=== PATIENT | female | born 1965 | race Caucasian/White ===

== ENCOUNTER 2019-03-08 10:28 | Outpatient (CLI) | payer BC ==
[2019-03-08 16:24] VITALS: BP 150/91
--- NOTE | 2019-03-08 16:24 | SLEEP CARE CONSULTATION ---
Information from patient questionnaire entered by Rosalva Barrow. I have reviewed and concur with the information entered by Rosalva Barrow. This document represents the service I personally performed and the decisions made by me, Chuck Chow MD, [facility]. History of Present Illness Reason for Visit: New patient Chief Complaint: reports: Insomnia Duration of Symptoms: 20+ years Usual bedtime: 9pm - 6 am Time it takes to fall asleep: 15-20 min Snores at night: Yes Observed to quit breathing while asleep: Yes Number of times waking at night: 2-4 Reasons for waking at night: reports: Gasping for air, Bathroom Toss, Turn, or Twitch while sleeping: Yes Recalls having dreams: Yes (sometimes) Usually gets out of bed at: 6 am Feels refreshed in the morning: No Morning headache: No Sleepy or fatigued during the day: Yes Ever fallen asleep while driving: No Takes day naps: No Prior sleep studies: Yes Year and Where: 2010, [place], [place] Additional HPI information: I had the pleasure of seeing Ms. Sorto today regarding the possibility of her having a sleep disorder. As you know, she is a 53 year old lady who complains of loud snore, observed apneas, frequent awakenings, unrefreshed sleep, and excessive daytime sleepiness. She had a sleep study in 2010 in [place]. The results are not available. Presently, she is not using CPAP. She used her CPAP a few years but not consistently. She quit because of headache and feeling that it blew too hard. She wore a full face mask. She did feel better when using the CPAP. The patient tells me that she normally goes to bed around 9 pm, and it takes her approximately 15 - 20 minutes to fall asleep. She snores loudly. She can recall waking up on the average of 2 - 4 times during the night. Most of the time she wakes up because of having to use the bathroom. She has awakened occasionally because of her own snoring, choking, and having to gasp for air. There is a lot of tossing and turning in her sleep. No somniloquy (sleep talking) or somnambulism (sleep walking). Generally she can recall having dreams. In the morning she usually gets up out of the bed around 6 a.m. not feeling refreshed nor rested. She usually does not have a morning headache. During the day she complains of feeling sleepy and fatigued. Her score on [place] Sleepiness Scale is 6 out of 24. She has never fallen asleep while driving nor has had any accident due to sleepiness. She usually does not take naps during the day. She reports having impaired concentration during the day. - Parasomnia Symptoms Ever been unable to move upon waking from sleep: No Ever felt weak in the knees when startled or emotional: No Bothered by creepy, crawly, restless sensations in legs: No Problems with memory or concentration: Yes Subjective Initial [place] Sleepiness Scale score: 6 Past Medical History Past Medical History: reports: Hypertension, Claustrophobia, Anxiety, GERD (mild), Other (BEATRIZ) Social History The patient's occupation is a RN. Patient is Single and lives in [place]. Have you smoked in the past 12 months: No Alcohol use: No Caffeine use: Yes Caffeine amount and frequency: 2-4 cups a day Family History Family history of sleep disordered breathing: No Allergies and Home Medications Known drug allergies: Yes (morphine, amoxicillin, and Norvasc) Drug allergies reviewed: Yes Home medication list reviewed: Yes (Bystolic, Benadryl, and vitamin D) Review of Systems Weight gain over past 5 years: 10 Cardiovascular: reports: high blood pressure, palpitations, leg or foot swelling Respiratory: denies: shortness of breath, wheeze, sputum production, chronic cough, other Gastrointestinal: reports: heartburn Urinary: denies: incontinence, frequency, urgency, impotence, other Neurological: denies: headaches, seizure, head trauma, disorientation, speech dysfunction, gait or balance problems, fainting or unconsciousness, other Psychiatric: reports: claustrophobia Ear/Nose/Throat: reports: wisdom teeth removed Endocrine: reports: sluggishness Musculoskeletal: denies: joint pain, neck pain, back pain, joint swelling, muscle pain or cramping, mobility problems, other Immunologic: reports: other (OCCAS, Eczema) Physical Exam Vital signs obtained and entered by: Dr. Chow Blood Pressure: 150/91 Cuff size: regular Heart Rate: 80 O2 Saturation: 98 Height: 5 ft 5 in Weight: 184 lb Body Mass Index: 30.6 BMI Classification: Obesity Class 1 Neck circumference: 16 Mood/affect: normal HEENT: No craniofacial malformation Nostrils: patent to airflow Turbinates: normal Septum: midline Mouth and throat: narrow oropharynx Soft palate: long Hard palate: normal Uvula: normal Uvula visualization: 25% Mallampati Class III Tongue: enlarged in size with teeth gaston on lateral edges Tonsils: small Chin and jaw: normal size and position Neck: normal w/o lymphadenopathy or thyromegaly Heart: regular rate and rhythm Lungs: clear bilaterally Abdomen: soft, non-tender Extremities: no edema or clubbing Neurologic: intact, no focal deficits Impression and Plan IMPRESSION: 1. Obstructive Sleep Apnea-Hypopnea Syndrome, as previously diagnosed. The severity is unknown as we do not have any of the records. She is not using her CPAP because of discomfort. She appears to be symptomatic for loud snore, unrefreshed sleep, persistent fatigue, and excessive daytime sleepiness. Narrow oropharynx and obesity are common predisposing factors for obstructive sleep apnea-hypopnea syndrome. Untreated obstructive sleep apnea can also cause hypertension. Pathophysiology of sleep-disordered breathing was discussed. I recommend proceeding to polysomnography to confirm the diagnosis and to assess severity. If she has significant sleep disordered breathing, a manual CPAP titration study will also be performed to find the optimal treatment pressure. I informed the patient of what the sleep studies involve and after some discussion, she agreed to proceed. Plan: 1. Schedule polysomnography + manual CPAP titration study. Home sleep apnea test (HSAT) is also an alternative diagnostic procedure. 2. Avoid long distance driving or when feeling sleepy. 3. Avoid alcohol, sedative and muscle relaxant around bedtime. 4. Attempt to lose weight. 5. Return in 1 to 2 weeks after the study to discuss results and reinitiate the therapy. I spent 100% of this visit face to face with the patient with greater than 50% of this was spent time counseling the patient and coordination of care.
== END 2019-03-08 10:29 | disposition home or self-care (01) ==
LOC: SC 10:28
PROVIDERS: ATTEND Internal Medicine Pulmonary Disease
DX: G47.33 Obstructive sleep apnea (adult) (pediatric) (principal); E66.9 Obesity, unspecified; Z68.30 Body mass index [BMI] 30.0-30.9, adult
CPT/HCPCS: 99203; 99212

== ENCOUNTER → 2019-03-21 | Outpatient (CLI) | payer BC | LOC: SC 19:30 | PROVIDERS: ATTEND Internal Medicine Pulmonary Disease | DX: G47.33 Obstructive sleep apnea (adult) (pediatric) (principal) | CPT/HCPCS: 95806 ==

== ENCOUNTER 2019-05-16 14:04 | Outpatient (CLI) | payer BC ==
--- NOTE | 2019-05-16 22:52 | SLEEP CARE CONSULTATION ---
Information from patient questionnaire entered by Rosalva Barrow. I have reviewed and concur with the information entered by Rosalva Barrow. This document represents the service I personally performed and the decisions made by me, Chuck Chow MD, [facility]. History of Present Illness Initial [place] Sleepiness Scale score: 6 Additional HPI information: To minimize the risk of COVID-19 exposure, we have the option to conduct your visit with me over the phone. I will be able to discuss your health and offer medical advice. If you agree, we will bill your insurance. Do you agree to this telephone service: YES. HPI: returned for follow up of the home sleep apnea test (HSAT) she had on 03/21/2019. The polysomnography showed moderate obstructive sleep apnea-hypopnea with an AHI of 21.4 and minimal hypoxemia. The respiratory events occurred mainly during supine sleep. The patient was informed of these findings. I explained to her the pathophysiology behind obstructive sleep apnea. We then spent quite a bit of time discussing different treatment options. For mild obstructive sleep apnea, surgery and oral appliance are alternatives to nasal CPAP therapy but in moderate or severe cases, nasal CPAP is the most effective and reliable treat ment. After some discussion, she opted try CPAP again. She used a CPAP briefly long time ago and quit because of headache. She remembers the pressure being too strong. Allergies and Home Medications Drug allergies reviewed: Yes Home medication list reviewed: Yes Review of Systems Review of systems same as previous: Yes Physical Exam Height: 5 ft 5 in Impression and Plan IMPRESSION: 1. Obstructive Sleep Apnea-Hypopnea Syndrome, moderate, associated with minimal hypoxemia. Possibly, this is the cause of the patients symptoms of unrefreshed sleep, and excessive daytime sleepiness. As mentioned above, the patient will be started on autoCPAP set low at 4 - 8 cmH2O. Depending on her response and compliance she may be brought back for an overnight CPAP titration study. PLAN: 1. Prescription made for an autoCPAP with heated humidifier and related supplies. 2. Attempt to lose weight. 3. Be careful when driving until her sleepiness resolves completely on nasal CPAP therapy. 4. Return in one month for follow up. I will assess her response and compliance at that time. I spent 100% of the 12 minute phone call with the patient with greater than 50% of this spent counseling the patient and coordination of care.
== END 2019-05-16 14:05 | disposition home or self-care (01) ==
LOC: SC 14:04
PROVIDERS: ATTEND Internal Medicine Pulmonary Disease
DX: G47.33 Obstructive sleep apnea (adult) (pediatric) (principal)

== ENCOUNTER 2019-08-11 13:42 | Outpatient (CLI) | payer BC ==
[2019-08-11 15:04] VITALS: BP 148/90
--- NOTE | 2019-08-11 15:04 | SLEEP CARE CONSULTATION ---
Information from patient questionnaire entered by Rosalva Barrow. I have reviewed and concur with the information entered by Rosalva Barrow. This document represents the service I personally performed and the decisions made by me, Shalini De La Cruz, RN, MSN, [employer]. History of Present Illness Service Date and Time: 08/11/2019 1342 Previous diagnosis: Moderate, Obstructive Sleep Apnea-Hypopnea Syndrome AHI: 21.4 (in 2019) Reason for follow up: first compliance Equipment type: CPAP Equipment obtained from: [facility] (no replacement supplies) Mask style: Full face Backup mask available: No (keep current mask when replaced) Last cushion change: none set up Prior sleep studies: Yes Year and Where: 2019 - [facility] Type of Sleep Study: Home sleep study CPAP Compliance Data - Data Reviewed with Patient Average duration of nightly device use: 6 Compliance rate %: 76.7 Current pressure setting (cmH2O): 4-8 Humidity settin Heated hose settin Average residual AHI: 10.2 Central apnea: 0.2 Obstructive apnea: 1.9 Hypopnea: 8.1 Average large leak: 23 min 25 sec Subjective Patient concerns: reports: air blowing in eyes (constantly adjusting mask to reduce mask leaks. ), mask leak noise, dry mouth, nose, throat (nightly mouth and throat - mild), other (headache initially for first week but now gone ). denies: aerophagia, mask discomfort, condensation in mask/hose, nasal congestion, epistaxis Observed to snore while using device: No Current pressure setting perceived as: comfortable On therapy, patient: reports: being more awake and alert during the day, more rested overall (but lately not as rested for unknown reason). denies: drowsiness while driving Initial [place] Sleepiness Scale score: 6 (in 2020) Current [place] Sleepiness Scale score: 9 Allergies and Home Medications Home medication list reviewed: Yes (no changes stated) Review of Systems Review of systems same as previous: Yes Physical Exam Blood Pressure: 148/90 Cuff size: long Heart Rate: 74 O2 Saturation: 97 Height: 5 ft 5 in Weight: 190 lb 12.8 oz Body Mass Index: 31.7 BMI Classification: Obese Impression and Plan 1. Obstructive Sleep Apnea-Hypopnea Syndrome, moderate, with good treatment compliance and mild elevation of residual AHl. On CPAP therapy, the patient has better sleep quality and is more rested overall. The patients pressure will be changed to autoCPAP 8-12 cmH20 For elevation of residual AHI. Patient advised to contact me if pressure change is uncomfortable so that it can be adjusted. Goals for apnea control discussed. Mask leaks are prevalent despite constant adjustment causing leaks into eyes and irritation and swelling below eyes. Thus I will order a mask refitting for better adjustment or size of cushion as she is not yet due for new mask. I have no samples to give her to try. In addition, I will have her loosen her mask under eyes to prevent swelling and to use eye lubricating drops and eye mask for eye protection. Her oral dryness can be reduced by adjusting humidity setting higher or heated hose lower or by adjusting both settings. Since she feels the air is too hot I will have her start with lowering the heated hose. Verbal instructions given on how to change humidity and heated hose settings with rationale explaining why to change. Oral dryness can also be reduced by reducing mask leaks. Patient advised that chronic oral dryness can affect dental health and advised to follow up with dentist. In addition, there are oral dryness products that can be used to reduce dryness. Patient to discuss best option with dentist. Patient's apnea severity and rationale for treatment to reduce apnea, improve sleep quality and reduce cardiovascular and cerebrovascular events was reviewed. I also reviewed the benefit of consistent device use of CPAP for hypertension. * Changeauto CPAP pressure to 8-12 cmH2O * Notify me if snoring with mask or feeling that the pressure is too much or too little * Implement methods to reduce mask leaks and oral dryness * mask refitting * Attempt to lose weight * Call this office if any problems using CPAP * Return for follow up in 1-2 months , or sooner if concerns arise Visit Type: In Office Time Spent with Patient (minutes): 35 Provider Statement: I spent 100% of the Face to Face Visit with the patient with greater than 50% spent counseling the patient and coordination of care.
== END 2019-08-11 13:43 | disposition home or self-care (01) ==
LOC: SC 13:42
PROVIDERS: ATTEND Nurse Practitioner Family
DX: G47.33 Obstructive sleep apnea (adult) (pediatric) (principal); E66.9 Obesity, unspecified; Z68.31 Body mass index [BMI] 31.0-31.9, adult
CPT/HCPCS: 99212; 99214

== ENCOUNTER 2019-11-09 14:18 | Outpatient (CLI) | payer BC ==
--- NOTE | 2019-11-09 15:02 | SLEEP CARE CONSULTATION ---
Information from patient questionnaire entered by Rosalva Barrow. I have reviewed and concur with the information entered by Rosalva Barrow. This document represents the service I personally performed and the decisions made by me, Ansley Azar ARNP. History of Present Illness Service Date and Time: 11/09/2019 1418 Previous diagnosis: Moderate, Obstructive Sleep Apnea-Hypopnea Syndrome AHI: 21.4 (in 2019) Reason for follow up: three month Equipment type: CPAP Equipment obtained from: [facility] (getting supplies) Mask style: Full face Backup mask available: No (keep mask when replaced) Last cushion change: 3 months ago after last appointment Prior sleep studies: Yes Year and Where: 2019 - [facility] Type of Sleep Study: Home sleep study HPI additional information: BELINDA FITZGERALD was diagnosed to have moderate, AHI 21.4, obstructive sleep apnea-hypopnea syndrome and returned today for CPAP therapy three month follow- up pressure change. Sleep Study - Results Prior sleep studies: Yes Year and Where: 2019 - [facility] CPAP Compliance Data - Data Reviewed with Patient Average duration of nightly device use: 6.5 Compliance rate %: 57.8 (90 days) Current pressure setting (cmH2O): 4-8 Humidity settin Heated hose settin Average residual AHI: 9.2 Average large leak: 9 mins 42 sec Subjective Patient concerns: reports: mask discomfort (because it is over face and she would like a nasal mask), air blowing in eyes (adjusting helps but has to make it very tight), mask leak noise (when roll on side), dry mouth, nose, throat (sometimes, not often; learning to keep mouth shut). denies: aerophagia, condensation in mask/hose, nasal congestion, epistaxis, other Observed to snore while using device: No Current pressure setting perceived as: comfortable On therapy, patient: reports: sleeping better, awakening more refreshed, being more awake and alert during the day, more rested overall. denies: drowsiness while driving Initial [place] Sleepiness Scale score: 6 (in 2019) Current [place] Sleepiness Scale score: 9 Allergies and Home Medications Drug allergies reviewed: Yes (amoxicillin, norvasc and morphine) Home medication list reviewed: Yes (no change) Review of Systems Review of systems same as previous: Yes (no changes) Physical Exam Heart Rate: 70 O2 Saturation: 99 Height: 5 ft 5 in Weight: 188 lb Body Mass Index: 31.2 BMI Classification: Obese Impression and Plan 1. Obstructive Sleep Apnea-Hypopnea Syndrome, moderate, with poor treatment compliance and fair apnea control, but has elevated residual AHI. On CPAP therapy, there is improved sleep quality and feels more rested overall. Patient has been experiencing mask leak noise and air blowing in her eyes. She adjusts the mask as needed and reduces the air leaking. Patient would like to try a nasal mask. She has learned to sleep with her mouth closed and she is having issues with using the full face mask because she is "tired" of wearing a mask. 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 Her compliance has reduced due to her intolerance of wearing the mask. Patient informed that her DME supplier is not handling supplies at this time. Patient has not gotten supplies from her present DME for a long time. For patient supply concerns of needing supplies and not getting as needed. Patient was informed that another DME can be used. I will have my educational coordinator inform of DME options. A [facility]O prescription will then be made. Patient advised to contact this office if further supply problems. Patient's apnea severity and rationale for treatment to reduce apnea, improve sleep quality and reduce cardiovascular and cerebrovascular events was reviewed. I also reviewed the benefit of consistent device use of CPAP for her hypertension. * Transfer DME * Mask refitting, would like to try nasal mask * Change autoCPAP pressure to 8-12 cmH2O * Notify me if snoring with mask or feeling that the pressure is too much or too little * Attempt to lose weight * Call this office if any problems using CPAP * Return for follow up in 1-2 months, or sooner if concerns arise Visit Type: In Office Time Spent with Patient (minutes): 33 Provider Statement: I spent 100% of the Face to Face Visit with the patient with greater than 50% spent counseling the patient and coordination of care.
== END 2019-11-09 14:19 | disposition home or self-care (01) ==
LOC: SC 14:18
PROVIDERS: ATTEND Nurse Practitioner Family
DX: G47.33 Obstructive sleep apnea (adult) (pediatric) (principal); E66.9 Obesity, unspecified; Z68.31 Body mass index [BMI] 31.0-31.9, adult
CPT/HCPCS: 99212; 99213

== ENCOUNTER 2020-01-03 16:41 | Outpatient (CLI) | payer BC ==
--- NOTE | 2020-01-03 16:49 | SLEEP CARE CONSULTATION ---
Information from patient questionnaire entered by Osiris Duran. I have reviewed and concur with the information entered by Osiris Duran. This document represents the service I personally performed and the decisions made by me, Ansley Azar ARNP. History of Present Illness Service Date and Time: 01/03/2020 1640 Previous diagnosis: Moderate, Obstructive Sleep Apnea-Hypopnea Syndrome AHI: 21.4 (in 2019) Reason for follow up: one month (followup pressure change) Equipment type: CPAP Equipment obtained from: Other ([facility] - getting supplies as needed) Mask style: Nasal pillows Backup mask available: Yes (old mask) Last cushion change: over a month Prior sleep studies: Yes Year and Where: 2019 - [facility] Type of Sleep Study: Home sleep study HPI additional information: BELINDA FITZGERALD was diagnosed to have moderate, AHI 21.4, obstructive sleep apnea-hypopnea syndrome and returns via Telehealth visit today for CPAP therapy one month pressure change follow-up. Sleep Study - Results Type of Sleep Study: Home sleep study Prior sleep studies: Yes Year and Where: 2019 - [facility] CPAP Compliance Data - Data Reviewed with Patient Average duration of nightly device use: 7 h 43 min Compliance rate %: 93.3 Current pressure setting (cmH2O): 8-12 Humidity settin Heated hose settin Average residual AHI: 1.3 Average large leak: 35 sec Subjective Patient concerns: denies: aerophagia, mask discomfort, air blowing in eyes, mask leak noise, condensation in mask/hose, nasal congestion, dry mouth, nose, throat, epistaxis, other Observed to snore while using device: No Current pressure setting perceived as: comfortable On therapy, patient: reports: sleeping better, awakening more refreshed, being more awake and alert during the day, more rested overall. denies: drowsiness while driving Initial [place] Sleepiness Scale score: 6 (in 2019) Current [place] Sleepiness Scale score: 6 Allergies and Home Medications Drug allergies reviewed: Yes (morphine, amoxicillin, norvasc) Home medication list reviewed: Yes (no changes) Review of Systems Review of systems same as previous: Yes (no changes) Physical Exam Vital signs obtained and entered by: Telehealth visit to reduce exposure during Covid pandemic Height: 5 ft 5 in Impression and Plan 1. Obstructive Sleep Apnea-Hypopnea Syndrome, moderate, with good treatment compliance and good apnea control. On CPAP therapy, the patient has better sleep quality and is more rested overall. She is really liking the new pressure range with changing to the nasal pillow mask. The mask is more comfortable and she has been able to be more compliant with CPAP use. Patient's apnea severity and rationale for treatment to reduce apnea, improve sleep quality and reduce cardiovascular and cerebrovascular events was reviewed. I also reviewed the benefit of consistent device use of CPAP for hypertension. * Continue auto CPAP pressure at 8-12 cmH2O * Notify me if snoring with mask or feeling that the pressure is too much or too little * Attempt to lose weight * Call this office if any problems using CPAP * Return for follow up in 1 year, or sooner if concerns arise Counseling Topics: Spare mask, Weight loss health impact Visit Type: Telehealth Video Video Type: Doximity Patient Location: Home Location of Provider: Office Patient agrees and consents to this telehealth visit type: Yes Patient agrees to have their insurance billed: Yes Time Spent with Patient (minutes): 15 Provider Statement: I spent 100% of the Telehealth Video Call with the patient with greater than 50% spent counseling the patient and coordination of care.
== END 2020-01-03 16:42 | disposition home or self-care (01) ==
LOC: SC 16:41
PROVIDERS: ATTEND Nurse Practitioner Family
DX: G47.33 Obstructive sleep apnea (adult) (pediatric) (principal)

== ENCOUNTER 2020-07-11 12:25 | Emergency (ER) | payer OTHER, BC ==
--- OUTSIDE RECORDS SUMMARY | 2020-07-11 12:57 | EXTERNAL MEDICAL SUMMARY RPT | Continuity of Care Document ---
:1965 Demographics Phone Unavailable Preferred Language Unknown Marital Status Unknown Rastafari Affiliation Unknown Race Unknown Ethnic Group Unknown Author Organization [place] Address [address] [phone] Phone Allergies Encounters Medications Problems Results
[2020-07-11] MEDS ORDERED: HYDROmorphone 1 MG/ML CARPUJECT IM STA (13:10)
--- NOTE | 2020-07-11 13:14 | ED Physician Documentation ---
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 She was descending 4 stairs and fell backwards striking her head on concrete. There was no loss of consciousness but she does feel a little dazed. No vomiting. She does report a history of a subdural hematoma when she was 16 years of age after a skiing accident. She endorses mild left-sided neck pain without paresthesias or upper extremity weakness. Past medical history includes hypertension on losartan only. Review of Systems Constitutional: reports: Reviewed and negative Eyes: denies: Loss of vision, Photophobia Ears: reports: Reviewed and negative Nose: reports: Reviewed and negative Throat: reports: Reviewed and negative Cardiac: reports: Chest pain / pressure Respiratory: reports: Reviewed and negative GI: reports: Reviewed and negative : reports: Reviewed and negative Skin: reports: Reviewed and negative Musculoskeletal: reports: Neck pain, Back pain Neurologic: reports: Headache, Head injury. denies: Focal weakness, Difficulty speaking, Near syncope, Syncope, Seizure, Confused, LOC Psychiatric: reports: Reviewed and negative PD PAST MEDICAL HISTORY - Present Medications Home Medications: Ambulatory Orders Medication Instructions Recorded Confirmed Losartan Potassium 25 mg PO BID 07/11/20 07/11/20 Methocarbamol [Robaxin-750] 750 mg PO TID PRN #30 tablet 07/11/20 - Allergies Allergies/Adverse Reactions: Allergies Allergy/AdvReac Type Severity Reaction Status Date / Time amlodipine [From [facility]] Allergy Unknown Verified 07/11/20 12:41 amoxicillin Allergy Nausea Verified 07/11/20 12:41 PD ED PE NORMAL - General General: Alert and oriented X 3, No acute distress - HEENT HEENT: PERRL - Neck Neck: Supple, no meningeal sign - Cardiac Cardiac: RRR, No murmur - Respiratory Respiratory: Clear bilaterally - Abdomen Abdomen: Normal bowel sounds (ccccccccccccc), Soft, Non tender, Non distended - Back Back: No CVA TTP, No spinal TTP - Derm Derm: Normal color, No rash - Neuro Neuro: Alert and oriented X 3, talent consultant 2-12 intact Eye Opening: Spontaneous Motor: Obeys Commands Verbal: Oriented GCS Score: 15 Results - Vitals Vitals: Vital Signs - 24 hr 07/11/20 12:41 Temperature 36.3 C L Heart Rate 97 Respiratory 16 Rate Blood Pressure 181/102 H O2 Saturation 99 Oxygen O2 Source Room air - Rads (name of study) cxr Radiology: Prelim report reviewed CT head wo Radiology: Final report received (No CT evidence of acute intracranial pathology.) Cervical spine CT wo Radiology: Final report received (No acute cervical spine fracture or dislocation. Mild degenerative endplate changes in mid to lower cervical spine.) PD MEDICAL DECISION MAKING - ED course Complexity details: reviewed results, re-evaluated patient, d/w patient ED course: 55-year-old female presents the emergency department for evaluation of a headache neck pain and back pain after falling down 4 stairs while at work today. She struck her head on concrete without loss of consciousness no blood thinners she does however have a previous history of subdural hematoma.On presentation she is neurologically intact with no focal changes or Gabi signs however given history of previous subdural a CT of the head and neck was completed without any worrisome findings. She does feel somewhat slow and confused therefore I do suspect she has a postconcussive injury. Pt will be placed on a limited muscle relaxer. Recommend f/u with PCP. Return to full work without restriction 07/13/20. Emergent return precautions discussed Departure - Departure Disposition: 01 Home, Self Care Clinical Impression: Fall from ground level, Neck pain Concussion Qualifiers: Encounter type: initial encounter Loss of consciousness presence/duration: without LOC Qualified Code(s): S06.0X0A - Concussion without loss of consciousness, initial encounter Condition: Stable Record reviewed to determine appropriate education?: Yes Instructions: ED Neck Back Pain General Follow-Up: Lamin Snyder MD [Primary Care Provider] - Prescriptions: Methocarbamol [Robaxin-750] 750 mg PO TID PRN #30 tablet PRN Reason: Spasms Comments: You were seen in the emergency department today after a ground-level fall in which you fell backward from 4 stairs striking your head on concrete. CT of your head and neck did not show any fractures bruising or bleeding. It is likely however that you do have a minor concussion. Making sure that you get plenty of rest and sleep at night is important. I do expect that you will be generally very sore and uncomfortable over the next 48 to 72 hours but it should begin to improve. You can take Tylenol 600 mg with food 3 times a day for aches as well is a limited amount of methocarbamol which is a muscle relaxer. You are cleared to return to full duty at work without restrictions on 13 July. Return to the emergency department if you develop suddenly severe headache, have arm or leg weakness or uncontrolled vomiting or feel that your symptoms are worsening in any way.
--- NOTE | 2020-07-11 13:32 | XRAY Report ---
PROCEDURE: Chest 1 View X-Ray INDICATIONS: chest pain TECHNIQUE: One view of the chest was acquired. COMPARISON: None FINDINGS: Surgical changes and devices: None. Lungs and pleura: No pleural effusions or pneumothorax. Lungs are clear. Mediastinum: Mediastinal contours appear normal. Heart size is normal. Bones and chest wall: No suspicious bony lesions. Overlying soft tissues appear unremarkable. IMPRESSION: No acute pulmonary process. Reviewed by: Sherine Mondragon MD on 07/11/2020 1:31 PM PDT Approved by: Sherine Mondragon MD on 07/11/2020 1:31 PM PDT Station ID: [id number]
--- NOTE | 2020-07-11 14:00 | CT Report ---
PROCEDURE: HEAD WO INDICATIONS: GLF; concussive TECHNIQUE: Noncontrast 4.5 mm thick angled axial sections acquired from the foramen magnum to the vertex. For r adiation dose reduction, the following was used: automated exposure control, adjustment of mA and/or kV according to patient size. COMPARISON: None. FINDINGS: Image quality: Excellent. CSF spaces: Basal cisterns are patent. No extra-axial fluid collections. Ventricles are normal in size and shape. Brain: No midline shift. No intracranial masses or hemorrhage. Ghotra-white matter interface is norm al. Skull and face: Calvarium and visualized facial bones are intact, without suspicious lesions. Sinuses: Visualized sinuses and mastoids are clear. IMPRESSION: No CT evidence of acute intracranial pathology. Reviewed by: Markus De Souza MD on 07/11/2020 1:59 PM PDT Approved by: Markus De Souza MD on 07/11/2020 1:59 PM PDT Station ID: [id number]
--- NOTE | 2020-07-11 14:01 | CT Report ---
PROCEDURE: CERVICAL SPINE WO INDICATIONS: GLF; neck pain TECHNIQUE: Noncontrast 3 mm thick sections acquired from the skull base to the T4 level. Sagittal and coronal r eformats were then constructed. For radiation dose reduction, the following was used: automated exp osure control, adjustment of mA and/or kV according to patient size. COMPARISON: None. FINDINGS: Image quality: Excellent. Bones: No fractures or dislocations. Degenerative endplate changes are noted at C4-5 through C6-7 l evels. Visualized superior ribs are intact. Soft tissues: Prevertebral soft tissues are normal in thickness. No paravertebral hematomas. No ap ical pneumothoraces. IMPRESSION: No acute cervical spine fracture or dislocation. Mild degenerative endplate changes in mid to lower c ervical spine. Reviewed by: Markus De Souza MD on 07/11/2020 1:59 PM PDT Approved by: Markus De Souza MD on 07/11/2020 1:59 PM PDT Station ID: [id number]
[2020-07-11 14:51] VITALS: BP 175/98
== END 2020-07-11 14:51 | disposition home or self-care (01) ==
LOC: ED 12:25
DX: S06.0X0A Concussion without loss of consciousness, initial encounter (principal); M54.2 Cervicalgia; R07.9 Chest pain, unspecified; W10.8XXA Fall (on) (from) other stairs and steps, initial encounter; Y93.01 Activity, walking, marching and hiking; Y92.239 Unspecified place in hospital as the place of occurrence of the external cause; Z87.820 Personal history of traumatic brain injury; I10 Essential (primary) hypertension; M47.812 Spondylosis without myelopathy or radiculopathy, cervical region
CPT/HCPCS: 70450; 71045; 72125; 96372; 99284; J1170